=== PATIENT | female | born 1955 | race Caucasian/White ===

== ENCOUNTER 2020-04-16 19:17 | Emergency (ER) | payer BC ==
[~2020-04-16] VITALS: Ht 162.6 cm; Wt 67.6 kg
--- NOTE | 2020-04-16 19:25 | NUR ---
PT BIBRA 839 FOR C/O R SHOULDER PAIN S/P GLF AT [facility]. SWELLING NOTED. -KO -DENIES HT. PT AAOX4, RESPIRATIONS EVEN AND UNLABORED ON RA W/ NAD NOTED. PT CONNECTED TO THE BOOK JOGGER AND POX.
--- NOTE | 2020-04-16 19:35 | NUR ---
DR CORREIA AT BEDSIDE
[2020-04-16] MEDS ORDERED: HYDROMORPHONE 1 MG/1 ML DISP.SYRIN ONE (19:46)
[2020-04-16] MEDS ORDERED: HYDROMORPHONE INJ 0.5 MG/0.5 ML SYRINGE IV ONE (20:00)
[2020-04-16] MEDS ORDERED: HYDROCODONE/APAP 5/325MG 1 EACH TABLET PO ONE (22:00)
[2020-04-16] MEDS ORDERED: HYDROCODONE/APAP 5/325MG 1 EACH TABLET ONE (22:08)
[2020-04-16 23:19] VITALS: BP 143/74
== END 2020-04-16 23:19 | disposition home or self-care (01) ==
LOC: ER 19:21
DX: S42.291A Other displaced fracture of upper end of right humerus, initial encounter for closed fracture (principal); F41.9 Anxiety disorder, unspecified; F32.9 Major depressive disorder, single episode, unspecified; Z88.5 Allergy status to narcotic agent; W01.0XXA Fall on same level from slipping, tripping and stumbling without subsequent striking against object, initial encounter; Y93.01 Activity, walking, marching and hiking; Y92.098 Other place in other non-institutional residence as the place of occurrence of the external cause; Y99.8 Other external cause status
CPT/HCPCS: 73030; 96374; 99283; J1170